=== PATIENT | female | born 1955 | race Caucasian/White ===

== ENCOUNTER → 2017-06-10 | Outpatient (CLI) | payer BC ==
[~2017-06-10] MED LIST: BNC/40 PO; CYCL0.052 OPB; HYDR12.55 PO; SPR25 PO
--- NOTE | 2017-06-10 09:41 | DIAGNOSTIC IMAGING REPORT ---
R RIBS UNILATERAL WITH PA CHEST CLINICAL HISTORY: Right sided rib pain and tenderness. COMPARISON STUDY: Chest radiograph August 30, 2015. FINDINGS: There is no pneumothorax or pleural effusion. Lung volumes are normal. Lungs are clear with the exception of subsegmental left basilar atelectasis. Bilateral axillary/breast clips are noted. There is no acute right rib fracture. No pneumothorax or pleural effusion is present. Cardiomediastinal silhouette is normal. Pulmonary vascularity is normal. IMPRESSION: No pneumothorax. No acute right rib fractures identified. Electronically signed by: Luther Beavers M.D. 06/10/2017 9:40 AM Dictated Date/Time: 06/10/2017 9:36 AM
== END | disposition home or self-care (01) ==
LOC: C.RAD1850 09:21
PROVIDERS: ATTEND Family Medicine
DX: R07.81 Pleurodynia (principal)

== ENCOUNTER → 2017-07-13 | Outpatient (CLI) | payer BC | END | disposition home or self-care (01) | LOC: C.MAMM 12:56 | PROVIDERS: ATTEND Family Medicine | DX: M81.0 Age-related osteoporosis without current pathological fracture (principal); M85.851 Other specified disorders of bone density and structure, right thigh; M85.852 Other specified disorders of bone density and structure, left thigh ==